=== PATIENT | male | born 1980 | race Caucasian/White ===

== ENCOUNTER 2025-02-01 03:17 | Emergency (ER) | payer OTHER, SELFPAY ==
[2025-02-01 03:23] VITALS: BP 134/95
[2025-02-01 03:51] VITALS: BP 149/86
--- NOTE | 2025-02-01 05:09 | ED.GENMED ---
History of Present Illness
General
Chief Complaint: Fall
Source: patient
Exam Limitations: none
Time Seen by Provider: 02/01/25 03:58
Nursing documentation reviewed up to this point in time: agreed with
History of Present Illness
History of Present Illness:
44-year-old male presenting to the emergency department after a fall hitting the back of his head on the end table. This was about 20 minutes prior to arrival. No loss of consciousness not on blood thinners denies additional concerns otherwise.
Past History
Past History
ED Past Medical History: HTN
ED Past Surgical History: None and Orthopedic
Social History
Tobacco: Non-smoker
Alcohol: Chronic alcoholic
Review of Systems
Review of Systems
Allergies reviewed?: Yes
All Other Systems: ROS reviewed and negative except as documented in HPI and ROS
Phy Exam
Physical Exam
Physical Exam:
GENERAL: Alert , in no apparent distress
EYE: pupils equal and reactive
NECK: Supple, no significant adenopathy.
ENT: Posterior scalp 3 cm laceration subcutaneous in depth no foreign body seen o/p clr, mmm.
CARDIAC: Regular rate and rhythm .
LUNGS: Clear breath sounds bilaterally, no acute respiratory distress, no wheezes/rales/rhonchi
ABDOMEN: Soft, without focal tenderness, no r/g, no cvat
NEUROLOGICAL: Alert and oriented, no focal neuro deficits 5 out of 5 upper and lower extremity strength normal sensation with palpating bilaterally
SKIN: Warm and dry, skin intact.
MUSCULOSKELETAL: No edema, well perfused.
PSYCH: Normal and appropriate interaction.
Course
Orders/Labs/Results
Orders:
Orders
02/01/25 03:47
CT Cervical Spine W/o Iv Contr Urgent
Comment:
Reason For Exam: fall
CT Head W/o Iv Contrast Urgent
Comment:
Reason For Exam: fall
Vital Signs
Initial and Last Documented VS:
Initial Vital Signs
Temp Pulse Resp BP Pulse Ox
97.7 F 121 22 134/95 92
02/01/25 03:23 02/01/25 03:23 02/01/25 03:23 02/01/25 03:23 02/01/25 03:23
Last Documented Vital Signs
Temp Pulse Resp BP Pulse Ox
97.7 F 121 22 149/86 92
02/01/25 03:23 02/01/25 03:23 02/01/25 03:23 02/01/25 03:51 02/01/25 03:53
Procedures
Laceration Closure
Right Posterior Scalp:
Status of Wound: clean
Size of Wound in cm: 3
Description of Wound Edges: sharp
Preparation: cleaned with saline
Anesthesia: 1% Lidocaine with epi
Revision/Debridement: routine- no revision and irrigate-direct pressure
Wound exploration: explored to base- no FB
Type of Closure: single layer closure
Skin Closure Material: skin rafiq and other
Additional information:
5 rafiq
MDM/Problems Addressed
MDM/Problems Addressed:
44-year-old male presenting to the emergency department after ground-level fall hitting the back of causing laceration. This was cleaned thoroughly closed with [address] scan of the head and neck without emergent findings. Stable for
discharge time. Return precautions given. Patient was offered a tetanus shot he says that he believes he is up-to-date and does not want a tetanus shot at this time.
*Pulse Oximetry
SaO2: 92
Oxygen Mode of Delivery: Room air
Patient hypoxic: no (92)
*Critical Care Note
Total Time (30-74mins, 75-104mins- exclusive of procedures): Not Applicable
ED Attending Note
-
Portions of this chart may have been created with voice recognition software.� Occasional wrong word or��sound alike� substitutions may have occurred due to the inherent limitations of voice recognition software.
Discharge Plan
Departure
Patient Disposition: Home (Routine Discharge)
Date of Disposition: 02/01/25
Time of Disposition: 05:11
Patient with high blood pressure during this ER visit?: No
Condition: Good
Covid-19: Not Applicable
Discharge Problem:
Laceration of scalp
Instructions: Laceration Repair With [place] (DC)
Prescriptions:
No Action
losartan 50 MG tablet
50 mg PO DAILY
duloxetine 60 MG capsule,delayed release(DR/EC)
60 mg PO DAILY
lorazepam 0.5 MG tablet
0.5 mg PO Q6HPRN PRN (Reason: anxiety/tremor) Qty: 8 0RF
Referrals:
Ahsan Darling MD [Family Provider, [facility]]
Activity Restrictions/Additional Instructions:
You came to the emergency department today after a fall. You had a laceration to your posterior scalp. Please have the rafiq removed in 5 days with the primary care doctor. Return for any worsening, new or concerning symptoms.
Interventions
Interventions:
*Risk Screen - Suicide Last Done: 02/01/25 03:25
*General Assessment Last Done: 02/01/25 03:25
*Neglect/Abuse Screening Last Done: 02/01/25 03:25
*ED COVID-19 Vaccine History Last Done: 02/01/25 03:25
ED-Musculoskeletal Assessment Last Done: 02/01/25 04:00
ED- Neurological Assessment Last Done: 02/01/25 04:00
ED-Skin Assessment Last Done: 02/01/25 04:00
Discharge Date and Time
Print Language: KHMER
== END 2025-02-01 05:20 | disposition home or self-care (01) ==
LOC: EMR 03:17
PROVIDERS: EMERGENCY PHYSICIAN Student in an Organized Health Care Education/Training Program; FAMILY PHYSICIAN Family Medicine
DX: S01.01XA Laceration without foreign body of scalp, initial encounter (principal); W01.190A Fall on same level from slipping, tripping and stumbling with subsequent striking against furniture, initial encounter; I10 Essential (primary) hypertension
CPT/HCPCS: 99285; 70450; 72125